=== PATIENT | male | born 1945 | race Caucasian/White ===

== ENCOUNTER 2020-08-15 11:41 | Emergency (ER) | payer MEDICARE ==
[2020-08-15 12:36] LABS: ABSOLUTE LYMPHOCYTES (AUTO) 0.6 10^3/uL (0.5-4.7); ABSOLUTE MONOCYTES (AUTO) 0.4 10^3/uL (0.1-1.4); BASOPHILS % (AUTO) 0.1 % (0-2); EOSINOPHILS % (AUTO) 0.5 % (0-6); HEMATOCRIT 38.7 % (37.9-51.0); HEMOGLOBIN 13.3 g/dL (13.5-17.0); LYMPHOCYTES % (AUTO) 8.3 % (13-45); MEAN CORPUSCULAR HEMOGLOBIN 31.2 pg (27.0-33.4); MEAN CORPUSCULAR HGB CONC 34.5 g/dL (32.0-36.0); MEAN CORPUSCULAR VOLUME 91 fl (80-97); MONOCYTES % (AUTO) 5.6 % (3-13); PLATELET COUNT 135 10^3/uL (150-450); RED BLOOD COUNT 4.27 10^6/uL (4.35-5.55); RED CELL DISTRIBUTION WIDTH 16.5 % (11.5-14.0); SEGMENTED NEUTROPHILS % (AUTO) 85.5 % (42-78); TOTAL CELLS COUNTED % (AUTO) 100 %; WHITE BLOOD COUNT 7.1 10^3/uL (4.0-10.5)
[2020-08-15 12:57] LABS: ALBUMIN 3.5 g/dL (3.5-5.0); ALKALINE PHOSPHATASE 87 U/L (38-126); ANION GAP 8 (5-19); ASPARTATE AMINO TRANSFERASE 21 U/L (17-59); BILIRUBIN,DIRECT 0.5 mg/dL (0.0-0.4); BILIRUBIN,TOTAL 0.7 mg/dL (0.2-1.3); BLOOD UREA NITROGEN 24 mg/dL (7-20); CALCIUM 8.7 mg/dL (8.4-10.2); CARBON DIOXIDE 27 mmol/L (22-30); CHLORIDE 104 mmol/L (98-107); GLUCOSE 193 mg/dL (75-110); POTASSIUM 4.8 mmol/L (3.6-5.0); TOTAL PROTEIN 5.7 g/dL (6.3-8.2)
[2020-08-15] MEDS ORDERED: HYDROCORTISONE SOD SUCCINATE INJ/PF 100 MG/2 ML SDV IV ONE (13:31)
--- NOTE | 2020-08-15 13:41 | ER Document Report ---
ED General - General Chief Complaint: Low Blood Pressure Stated Complaint: LOW BLOOD PRESSURE Time Seen by Provider: 08/15/20 13:12 - HPI Notes: Chief complaint: High pulse rate and low blood pressure History of present illness: Mr. 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 This man is very stoic but at this point states that he is totally asymptomatic. He reports that he was treated 10 days ago by his primary care provider for herpes zoster and is just completed a 10-day course of valacyclovir. He has had some mild discomfort of the chest wall area related to this illness. He is also had some loss of appetite and says he is not eating and drinking well. Patient has past hx. of paroxysmal AF, SVT, pacemaker. He denies cough or shortness of breath. He denies chest pain. He denies fever or chills. He denies vomiting or diarrhea. He denies any known covert exposure. He denies abdominal pain. He denies syncope or presyncope. Patient continues his usual antirejection medications including 5 mg of prednisone daily. He denies missing any recent doses of his medication. He says he feels well and wants to go home at this time. - Related Data Allergies/Adverse Reactions: diazepam [From Valium] Allergy (Verified 08/15/20 12:17) Past Medical History - General Information source: Patient, Relative, [facility] Records - Social History Smoking Status: Former Smoker Frequency of alcohol use: Rare Drug Abuse: None Family History: Reviewed & Not Pertinent Patient has homicidal ideation: No - Past Medical History Cardiac Medical History: Reports: Hx Atrial Fibrillation, Hx Heart Attack, Hx Hypercholesterolemia, Hx Hypertension, Other - History of SVT Pulmonary Medical History: Reports: Other - Pulmonary fibrosis status post lung transplant Endocrine Medical History: Reports: Hx Diabetes Mellitus Type 2 Renal/ Medical History: Denies: Hx Peritoneal Dialysis Past Surgical History: Reports: Hx Bowel Surgery - History exploratory laparotomy for small bowel obstruction, Hx Cardiac Surgery - pacemaker x3, Hx Orthopedic Surgery - spinal fusion, Hx Pacemaker Review of Systems - Review of Systems Notes: Constitutional: Negative for fever. HENT: Negative for sore throat. Eyes: Negative for visual changes. Cardiovascular: Negative for chest pain. Respiratory: Negative for shortness of breath. Gastrointestinal: Negative for abdominal pain, vomiting or diarrhea. Genitourinary: Negative for dysuria. Musculoskeletal: Negative for back pain. Skin: Resolving skin rash over right side trunk related to recent herpes zoster infection. Neurological: Negative for headaches, weakness or numbness. 10 point ROS negative except as marked above and in HPI. Physical Exam - Vital signs Vitals: Temp Pulse Resp BP Pulse Ox 97.4 F 138 H 16 83/62 L 99 08/15/20 11:53 08/15/20 11:53 08/15/20 11:53 08/15/20 11:53 08/15/20 11:53 - Notes Notes: GENERAL: Slender male of approximately stated age appearing in no acute distress. SKIN: Good turgor. Crusting lesions of anterior and posterior trunk on the right side consistent with resolving shingles. Mild decreased turgor. HEAD: Normocephalic atraumatic. EYES: PERRLA. EOMI. Conjunctivae and sclerae clear. EARS: CANALS AND TMS CLEAR. NOSE: CLEAR. MOUTH: Dry oral mucosa. Good dentition. No stridor or edema. No drooling. NECK: Supple. No masses or thyromegaly. No adenopathy. Carotids 2+ without bruits. No JVD. BACK: Symmetrical without tenderness. CHEST: Respirations unlabored. Breath sounds clear and symmetrical. HEART: Pacemaker left anterior chest wall. Tachycardic regular rhythm. No murmur gallop or rub. ABDOMEN: Healed midline surgical scar present. Soft nontender without masses, organomegaly or rebound. Bowel sounds normally active. No bruits. GENITALIA: Deferred. EXTREMITIES: No edema. No calf tenderness. Cap refill less than 1.5 seconds. Dorsalis pedis and posterior tibial pulses 3+ and symmetrical. NEUROLOGICAL: GCS 15. Alert and oriented x3. Fluent speech. Cranial nerves II through XII intact. Sensorimotor and cerebellar normal. Normal tone. PSYCHIATRIC: Appropriate affect. Course - Vital Signs Vital signs: Temp Pulse Resp BP Pulse Ox 97.4 F 138 H 12 109/97 H 99 08/15/20 11:53 08/15/20 11:53 08/15/20 20:00 08/15/20 19:01 08/15/20 20:00 - Laboratory Result Diagrams: 08/15/20 12:20 08/15/20 16:54 Laboratory results interpreted by me: 08/15/20 08/15/20 08/15/20 12:20 12:20 12:20 RBC 4.27 L Hgb 13.3 L RDW 16.5 H Plt Count 135 L Lymph % (Auto) 8.3 L Seg Neutrophils % 85.5 H PT 16.6 H BUN 24 H Creatinine 1.64 H Est GFR ( Amer) 50 L Est GFR (MDRD) Non-Af 41 L Glucose 193 H POC Glucose Calcium Direct Bilirubin 0.5 H Total Protein 5.7 L Urine Glucose (UA) 08/15/20 08/15/20 08/15/20 14:24 16:54 19:16 RBC Hgb RDW Plt Count Lymph % (Auto) Seg Neutrophils % PT BUN 21 H Creatinine 1.34 H Est GFR ( Amer) Est GFR (MDRD) Non-Af 52 L Glucose 170 H POC Glucose 216 H Calcium 7.8 L Direct Bilirubin Total Protein Urine Glucose (UA) 50 H 08/15/20 19:38 RBC Hgb RDW Plt Count Lymph % (Auto) Seg Neutrophils % PT BUN Creatinine Est GFR ( Amer) Est GFR (MDRD) Non-Af Glucose POC Glucose 136 H Calcium Direct Bilirubin Total Protein Urine Glucose (UA) - EKG Interpretation by Me Additional EKG results interpreted by me: 08/15/20 13:42 Twelve-lead EKG reviewed by me contemporaneously: 1205 hrs. Indication for study: Tachycardia Rhythm: Sinus tachycardia Rate: 138 Intervals: Prolonged QTC 528 ms QRS axis: -[address]/T wave changes: None Comparison with prior tracing: Compared with prior tracing of 06/11/2019 rate has increased significantly Interpretation: Sinus tachycardia 08/15/20 20:32 EKG #2 Twelve-lead EKG reviewed by me contemporaneously:0935 hours Indication for study: Tachycardia Rhythm: Atrial fibrillation Rate: 103 Intervals: Normal QRS axis: -[address]/T wave changes: None Comparison with prior tracing: Sinus tachycardia has been replaced by atrial fibrillation Interpretation: Atrial fibrillation with controlled ventricular response Discharge - Discharge Clinical Impression: Dehydration, Paroxysmal atrial fibrillation, History of lung transplantation Condition: Stable Disposition: HOME, SELF-CARE Additional Instructions: Increase oral fluids. Increase your metoprolol to 25 mg twice daily. Return here as needed for new or worsening symptoms. Follow-up with your primary care doctor in the next 24 hours.
[2020-08-15 14:08] LABS: VENOUS BLOOD BASE EXCESS -0.5 mmol/L; VENOUS BLOOD HCO3 26.8 mmol/L (20-32); VENOUS BLOOD PCO2 55.8 mmHg (35-63); VENOUS BLOOD PH 7.3 (7.30-7.42)
[2020-08-15] MEDS: NORMAL SALINE 1000 ML 1,000 ML IV PRN ×2 (14:25→15:32)
[2020-08-15 14:26] LABS: INTERNATIONAL RATION (INR) 1.33; PROTHROMBIN TIME 16.6 SEC (11.4-15.4)
--- NOTE | 2020-08-15 14:54 | RADIOLOGY REPORT (SQ) ---
EXAM DESCRIPTION: CHEST SINGLE VIEW IMAGES COMPLETED DATE/TIME: 08/15/2020 2:29 pm REASON FOR STUDY: s/p lung transplant COMPARISON: 06/11/2019 EXAM PARAMETERS: NUMBER OF VIEWS: One view. TECHNIQUE: Single frontal radiographic view of the chest acquired. RADIATION DOSE: NA LIMITATIONS: None. FINDINGS: LUNGS AND PLEURA: Persistent, albeit somewhat improved appearance of right hemithorax incr eased interstitial markings with right apical bleb. The left lung is clear and evenly aerated. No p leural effusions or pneumothorax. MEDIASTINUM AND HILAR STRUCTURES: No masses. Contour normal. HEART AND VASCULAR STRUCTURES: Heart normal in size. Normal vasculature. BONES: No acute findings. HARDWARE: Midline surgical changes and transvenous pacer. OTHER: No other significant finding. IMPRESSION: Stable to slightly improved radiographic appearance of the post pulmonary transplant [facility]. No evidence of acute cardiopulmonary abnormality. TECHNICAL DOCUMENTATION: JOB ID: [id number] [employer]- All Rights Reserved Reading location - IP/workstation name: [email or web address]
[2020-08-15] MEDS ORDERED: NORMAL SALINE 1000 ML 1,000 ML IV ONE (16:43)
[2020-08-15] MEDS ORDERED: METOPROLOL SUCCINATE 25 MG TAB.SR.24H PO ONE (16:50)
[2020-08-15 17:31] LABS: ANION GAP 7 (5-19); BLOOD UREA NITROGEN 21 mg/dL (7-20); CARBON DIOXIDE 23 mmol/L (22-30); CHLORIDE 107 mmol/L (98-107); GLUCOSE 170 mg/dL (75-110); POTASSIUM 4.7 mmol/L (3.6-5.0)
[2020-08-15 17:33] LABS: CALCIUM 7.8 mg/dL (8.4-10.2)
--- NOTE | 2020-08-15 17:33 | EKG REPORT ---
SEVERITY:- ABNORMAL ECG - SINUS TACHYCARDIA LEFT ANTERIOR FASCICULAR BLOCK PROLONGED QT INTERVAL : Confirmed by: Imelda Vickers MD 15-Aug-2020 17:32:25
--- NOTE | 2020-08-15 17:33 | EKG REPORT ---
SEVERITY:- ABNORMAL ECG - ATRIAL FLUTTER, A-RATE 263 LEFT AXIS DEVIATION LOW VOLTAGE IN FRONTAL LEADS : Confirmed by: Imelda Vickers MD 15-Aug-2020 17:32:13
[2020-08-15] MEDS ORDERED: METOPROLOL TARTRATE PF/INJ 5 MG/5 ML SDV IV ONE (19:29)
[2020-08-15 19:37] LABS: APPEARANCE,URINE CLEAR; BILIRUBIN,URINE NEGATIVE (NEGATIVE); COLOR,URINE STRAW; GLUCOSE, URINE 50 mg/dL (NEGATIVE); KETONES,URINE NEGATIVE (NEGATIVE); PROTEIN,URINE NEGATIVE (NEGATIVE); URINE SPECIFIC GRAVITY 1.004; UROBILINOGEN,URINE NEGATIVE mg/dL (<2.0)
[2020-08-15 20:15] VITALS: BP 109/97
== END 2020-08-15 21:10 | disposition home or self-care (01) ==
LOC: ER 11:41
DX: I48.0 Paroxysmal atrial fibrillation (principal); E86.0 Dehydration; I47.1 Supraventricular tachycardia; I95.9 Hypotension, unspecified; R07.89 Other chest pain; R63.0 Anorexia; Z95.0 Presence of cardiac pacemaker; Z94.2 Lung transplant status; Z79.899 Other long term (current) drug therapy; Z88.8 Allergy status to other drugs, medicaments and biological substances; Z87.891 Personal history of nicotine dependence; E11.9 Type 2 diabetes mellitus without complications
CPT/HCPCS: 93005; 99285; 96361; 96374; 96375; 36415; 87040; 82962; 83605; 83735; 85025; 85610; 80053; 81001; 84484; 85379; 82803; 71045; 93010; J1720; J3490; J7030; A9270